=== PATIENT | male | born 1945 | race Caucasian/White ===

== ENCOUNTER 2019-08-05 14:46 | Inpatient (IN) | payer MEDICARE ==
[2019-08-05] MEDS ORDERED: Ondansetron 4 MG/2 ML SDV IVPUSH ONE (15:16)
[2019-08-05] MEDS ORDERED: Sodium Chloride 0.9% 10 ML Syringe FLUSH PRN ×2 (15:16→15:39)
[2019-08-05] MEDS: Sodium Chloride 0.9% 1,000 ML IV SCH (15:32)
--- NOTE | 2019-08-05 15:34 | EDM.PDOC ---
ED HPI GENERAL MEDICAL PROBLEM - General Chief Complaint: Abdominal Pain Stated Complaint: ABDOMINAL PAIN Time Seen by Provider: 08/05/19 14:55 Source of Information: Reports: Patient History Limitations: Reports: No Limitations - History of Present Illness INITIAL COMMENTS - FREE TEXT/NARRATIVE: Patient is a 74-year-old male who presents with complaints of generalized abdominal pain, distention, and bloating. He states that on Saturday he ate in [place]. After that he had a large loose bowel movement which he attributed to possibly eating something bad. Since that time, he has not been passing gas and has been getting increasingly distended. He did not pass gas or have a bowel movement at all yesterday. This morning he states he did have a small, hard bowel movement, however he did not pass any flatus with this either. He denies any history of previous abdominal surgeries. He still has his gallbladder and appendix. He denies any nausea, vomiting, fever, or chills. Pt has hx of afib and valve replacement and is on coumadin and amiodorone. He has had cardioversion and ablation in the past, but states these were unsuccessful. He denies any chest pain or SOB. Abdomen Pain Score (Numeric/FACES): 8 - Related Data Allergies Allergy/AdvReac Type Severity Reaction Status Date / Time No Known Allergies Allergy Verified 08/05/19 20:48 Home Meds: Home Meds Amiodarone [Cordarone] 200 mg PO DAILY 08/05/19 [History] Diclofenac Sodium 50 mg PO DAILY 08/05/19 [History] Doxazosin [Cardura] 1 mg PO BEDTIME 08/05/19 [History] Gabapentin [Neurontin] 100 mg PO BID 08/05/19 [History] Magnesium Amino Acid Chelate [Magnesium] 100 mg PO DAILY 08/05/19 [History] Pravastatin [Pravachol] 20 mg PO BEDTIME 08/05/19 [History] Warfarin Sodium [Coumadin] 6 mg PO TUFR 08/05/19 [History] Warfarin [Coumadin] 3 mg PO SUMOWETHSA 08/05/19 [History] Past Medical History HEENT History: Reports: Impaired Vision Cardiovascular History: Reports: High Cholesterol Genitourinary History: Reports: Other (See Below) Other Genitourinary History: frequeny at night Neurological History: Reports: Concussion, CVA 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 - Infectious Disease History Infectious Disease History: Reports: Scarlet Fever - Past Surgical History HEENT Surgical History: Reports: Tonsillectomy Cardiovascular Surgical History: Reports: Valve Replacement Other Cardiovascular Surgeries/Procedures: mechanical 1999 Social & Family History - Tobacco Use Smoking Status *Q: Current Every Day Smoker Years of Tobacco use: 25 Packs/Tins Daily: 0.1 - Caffeine Use Caffeine Use: Reports: Coffee, Tea - Alcohol Use Days Per Week of Alcohol Use: 5 Number of Drinks Per Day: 4 Total Drinks Per Week: 20 - Recreational Drug Use Recreational Drug Use: No ED ROS GENERAL - Review of Systems Review Of Systems: See Below Constitutional: Reports: No Symptoms. Denies: Fever, Chills HEENT: Reports: No Symptoms Respiratory: Reports: No Symptoms Cardiovascular: Reports: No Symptoms. Denies: Chest Pain, Palpitations Endocrine: Reports: No Symptoms GI/Abdominal: Reports: Abdominal Pain, Distension. Denies: Flatus, Nausea, Vomiting : Reports: No Symptoms Musculoskeletal: Reports: No Symptoms Skin: Reports: No Symptoms Neurological: Reports: No Symptoms Psychiatric: Reports: No Symptoms Hematologic/Lymphatic: Reports: No Symptoms Immunologic: Reports: No Symptoms ED EXAM, GI/ABD - Physical Exam Exam: See Below Exam Limited By: No Limitations General Appearance: Alert, WD/WN, No Apparent Distress Respiratory/Chest: No Respiratory Distress, Lungs Clear, Normal Breath Sounds, No Accessory Muscle Use, Chest Non-Tender Cardiovascular: Normal Peripheral Pulses, Regular Rate, Rhythm, No Edema, No Gallop, No JVD, No Murmur, No Rub GI/Abdominal Exam: No Organomegaly, No Distention, Distended (Firm), Guarding, Tender (Generalized throughout, but worse in the bilateral lower quadrants.), Abnormal Bowel Sounds (Hypoactive throughout) Neurological: Alert, Oriented, CN II-XII Intact, Normal Cognition, Normal Gait, Normal Reflexes, No Motor/Sensory Deficits Psychiatric: Normal Affect, Normal Mood Skin Exam: Warm, Dry, Intact, Normal Color, No Rash EKG INTERPRETATION EKG Date: 08/05/19 Time: 17:22 Rhythm: NSR Rate (Beats/Min): 80 Trilla: Normal P-Wave: Present QRS: LBBB (Incomplete) ST-T: Other (ST depression V3 through V6, I, and aVL) QT: Prolonged (Mildly) Comparison: NA - No Prior EKG EKG Interpretation Comments: EKG interpreted by Dr. Latanya MD Course - Vital Signs Last Recorded V/S: Last Vital Signs Temp 98.4 F 08/06/19 12:24 Pulse 69 08/06/19 12:24 Resp 18 08/06/19 12:24 BP 133/60 08/06/19 12:24 Pulse Ox 94 L 08/06/19 12:24 - Orders/Labs/Meds Orders: Active Orders 24 hr Category Date Time Status Patient Status [ADT] Routine ADT 08/05/19 17:56 Active Activity as Tolerated [RC] BID Care 08/05/19 17:56 Active Antiembolic Devices [RC] BID Care 08/05/19 17:57 Active Oxygen Therapy [RC] PRN Care 08/05/19 17:56 Active RT Incentive Spirometry [RC] Q1HWA Care 08/05/19 17:56 Active Vital Signs [RC] Q4HR Care 08/05/19 17:56 Active Acetaminophen [Tylenol] Med 08/05/19 18:00 Active 975 mg PO Q8H Amiodarone [Cordarone] Med 08/06/19 09:00 Active 200 mg PO DAILY Doxazosin [Cardura] Med 08/05/19 21:00 Active 1 mg PO BEDTIME Gabapentin [Neurontin] Med 08/05/19 21:00 Active 100 mg PO BID Lactated Ringers [Ringers, Lactated] 1,000 ml Med 08/05/19 18:00 Active IV ASDIRECTED Morphine Med 08/05/19 17:55 Active 1 mg IVPUSH Q3H PRN Simvastatin [Zocor] Med 08/05/19 21:00 Active 10 mg PO BEDTIME Sodium Chloride 0.9% [Normal Saline] 1,000 ml Med 08/05/19 15:30 Active IV ASDIRECTED Sodium Chloride 0.9% [Saline Flush] Med 08/05/19 15:16 Active 10 ml FLUSH ASDIRECTED PRN Peripheral IV Insertion Adult [OM.PC] Stat Oth 08/05/19 15:16 Ordered Sequential Compression Device [OM.PC] Routine Oth 08/05/19 17:56 Ordered Resuscitation Status Routine Resus Stat 08/05/19 17:55 Ordered Medication Orders Acetaminophen (Tylenol) 975 mg PO Q8H HELEN Last Admin: 08/06/19 11:33 Dose: 975 mg Admin: 08/06/19 02:09 Dose: 975 mg Admin: 08/05/19 22:59 Dose: Amiodarone HCl (Cordarone) 200 mg PO DAILY [facility] Last Admin: 08/06/19 08:26 Dose: 200 mg Doxazosin Mesylate (Cardura) 1 mg PO BEDTIME [facility] Last Admin: 08/05/19 23:11 Dose: Gabapentin (Neurontin) 100 mg PO BID [facility] Last Admin: 08/06/19 08:26 Dose: 100 mg Admin: 08/05/19 23:11 Dose: Sodium Chloride (Normal Saline) 1,000 mls @ 100 mls/hr IV ASDIRECTED [facility] Last Admin: 08/06/19 02:22 Dose: 150 mls/hr Infusion: 08/05/19 22:13 Dose: 100 mls/hr Admin: 08/05/19 15:32 Dose: 150 mls/hr Lactated Ringer's (Ringers, Lactated) 1,000 mls @ 100 mls/hr IV ASDIRECTED [facility] Last Admin: 08/06/19 05:23 Dose: 100 mls/hr Piperacillin Sod/Tazobactam (Sod 4.5 gm/ Sodium Chloride) 100 mls @ 25 mls/hr IV Q8H [facility] Last Admin: 08/06/19 08:27 Dose: 25 mls/hr Infusion: 08/06/19 05:01 Dose: 25 mls/hr Admin: 08/06/19 01:01 Dose: 25 mls/hr Lidocaine HCl (Xylocaine 2% Jelly) 5 ml MUCMEM Q4H [facility] Last Admin: 08/06/19 13:38 Dose: Not Given Admin: 08/06/19 08:26 Dose: 1 applic Admin: 08/06/19 04:16 Dose: 1 applic Admin: 08/06/19 01:00 Dose: 1 applic Morphine Sulfate (Morphine) 1 mg IVPUSH Q3H PRN PRN Reason: Pain (severe 7-10) Last Admin: 08/06/19 07:43 Dose: 1 mg Admin: 08/06/19 04:14 Dose: 1 mg Admin: 08/06/19 01:11 Dose: 1 mg Simvastatin (Zocor) 10 mg PO BEDTIME [facility] Last Admin: 08/05/19 23:11 Dose: Sodium Chloride (Saline Flush) 10 ml FLUSH ASDIRECTED PRN PRN Reason: Keep Vein Open Last Admin: 08/05/19 15:16 Dose: 10 ml Labs: Laboratory Tests 08/05/19 08/05/19 08/05/19 Range/Units 15:32 15:32 15:32 WBC 9.01 (4.23-9.07) K/mm3 RBC 4.20 L (4.63-6.08) M/mm3 Hgb 13.6 L (13.7-17.5) gm/dl Hct 40.9 (40.1-51.0) % MCV 97.4 H (79.0-92.2) fl MCH 32.4 H (25.7-32.2) pg MCHC 33.3 (32.2-35.5) g/dl RDW Std Deviation 47.4 H (35.1-43.9) fL Plt Count 171 (163-337) K/mm3 MPV 9.4 (9.4-12.3) fl Neut % (Auto) 89.5 H (34.0-67.9) % Lymph % (Auto) 4.1 L (21.8-53.1) % Kay % (Auto) 5.5 (5.3-12.2) % Eos % (Auto) 0.6 L (0.8-7.0) Baso % (Auto) 0.1 (0.1-1.2) % Neut # (Auto) 8.06 H (1.78-5.38) K/mm3 Lymph # (Auto) 0.37 L (1.32-3.57) K/mm3 Kay # (Auto) 0.50 (0.30-0.82) K/mm3 Eos # (Auto) 0.05 (0.04-0.54) K/mm3 Baso # (Auto) 0.01 (0.01-0.08) K/mm3 Manual Slide Review Abnormal smear PT (9.7-12.0) SECONDS INR APTT (22-31) SECONDS Sodium 139 (136-145) mEq/L Potassium 4.4 (3.5-5.1) mEq/L Chloride 102 (98-107) mEq/L Carbon Dioxide 27 (21-32) mEq/L Anion Gap 14.4 (5-15) BUN 23 H (7-18) mg/dL Creatinine 1.3 (0.7-1.3) mg/dL Est Cr Clr Drug Dosing 48.96 mL/min Estimated GFR (MDRD) 54 (>60) mL/min BUN/Creatinine Ratio 17.7 (14-18) Glucose 115 (83-115) mg/dL Lactic Acid (0.4-2.0) mmol/L Calcium 8.7 (8.5-10.1) mg/dL Total Bilirubin 1.0 (0.2-1.0) mg/dL AST 15 (15-37) U/L ALT 27 (16-63) U/L Alkaline Phosphatase 71 (46-116) U/L C-Reactive Protein 15.8 H* (<1.0) mg/dL Total Protein 7.4 (6.4-8.2) g/dl Albumin 3.7 (3.4-5.0) g/dl Globulin 3.7 gm/dL Albumin/Globulin Ratio 1.0 (1-2) Lipase 57 L (73-393) U/L Urine Color (Yellow) Urine Appearance (Clear) Urine pH (5.0-8.0) Ur Specific [place] (1.005-1.030) Urine Protein (Negative) Urine Glucose (UA) (Negative) Urine Ketones (Negative) Urine Occult Blood (Negative) Urine Nitrite (Negative) Urine Bilirubin (Negative) Urine Urobilinogen (0.2-1.0) Ur Leukocyte Esterase (Negative) Urine RBC (0-5) /hpf Urine WBC (0-5) /hpf Ur Squamous Epith Cells (0-5) /hpf Urine Bacteria (FEW) /hpf Urine Mucus (FEW) /hpf Blood Type Gel Antibody Screen 08/05/19 08/05/19 08/05/19 Range/Units 15:32 15:32 17:11 WBC (4.23-9.07) K/mm3 RBC (4.63-6.08) M/mm3 Hgb (13.7-17.5) gm/dl Hct (40.1-51.0) % MCV (79.0-92.2) fl MCH (25.7-32.2) pg MCHC (32.2-35.5) g/dl RDW Std Deviation (35.1-43.9) fL Plt Count (163-337) K/mm3 MPV (9.4-12.3) fl Neut % (Auto) (34.0-67.9) % Lymph % (Auto) (21.8-53.1) % Kay % (Auto) (5.3-12.2) % Eos % (Auto) (0.8-7.0) Baso % (Auto) (0.1-1.2) % Neut # (Auto) (1.78-5.38) K/mm3 Lymph # (Auto) (1.32-3.57) K/mm3 Kay # (Auto) (0.30-0.82) K/mm3 Eos # (Auto) (0.04-0.54) K/mm3 Baso # (Auto) (0.01-0.08) K/mm3 Manual Slide Review PT 31.0 H (9.7-12.0) SECONDS INR 3.03 APTT 55 H (22-31) SECONDS Sodium (136-145) mEq/L Potassium (3.5-5.1) mEq/L Chloride (98-107) mEq/L Carbon Dioxide (21-32) mEq/L Anion Gap (5-15) BUN (7-18) mg/dL Creatinine (0.7-1.3) mg/dL Est Cr Clr Drug Dosing mL/min Estimated GFR (MDRD) (>60) mL/min BUN/Creatinine Ratio (14-18) Glucose (83-115) mg/dL Lactic Acid (0.4-2.0) mmol/L Calcium (8.5-10.1) mg/dL Total Bilirubin (0.2-1.0) mg/dL AST (15-37) U/L ALT (16-63) U/L Alkaline Phosphatase (46-116) U/L C-Reactive Protein (<1.0) mg/dL Total Protein (6.4-8.2) g/dl Albumin (3.4-5.0) g/dl Globulin gm/dL Albumin/Globulin Ratio (1-2) Lipase (73-393) U/L Urine Color Yellow (Yellow) Urine Appearance Clear (Clear) Urine pH 5.5 (5.0-8.0) Ur Specific [place] 1.020 (1.005-1.030) Urine Protein 1+ H (Negative) Urine Glucose (UA) Negative (Negative) Urine Ketones Negative (Negative) Urine Occult Blood Negative (Negative) Urine Nitrite Negative (Negative) Urine Bilirubin Negative (Negative) Urine Urobilinogen 0.2 (0.2-1.0) Ur Leukocyte Esterase Negative (Negative) Urine RBC 0-5 (0-5) /hpf Urine WBC 0-5 (0-5) /hpf Ur Squamous Epith Cells 0-5 (0-5) /hpf Urine Bacteria Few (FEW) /hpf Urine Mucus Moderate H (FEW) /hpf Blood Type O POSITIVE Gel Antibody Screen Negative 08/05/19 Range/Units 17:50 WBC (4.23-9.07) K/mm3 RBC (4.63-6.08) M/mm3 Hgb (13.7-17.5) gm/dl Hct (40.1-51.0) % MCV (79.0-92.2) fl MCH (25.7-32.2) pg MCHC (32.2-35.5) g/dl RDW Std Deviation (35.1-43.9) fL Plt Count (163-337) K/mm3 MPV (9.4-12.3) fl Neut % (Auto) (34.0-67.9) % Lymph % (Auto) (21.8-53.1) % Kay % (Auto) (5.3-12.2) % Eos % (Auto) (0.8-7.0) Baso % (Auto) (0.1-1.2) % Neut # (Auto) (1.78-5.38) K/mm3 Lymph # (Auto) (1.32-3.57) K/mm3 Kay # (Auto) (0.30-0.82) K/mm3 Eos # (Auto) (0.04-0.54) K/mm3 Baso # (Auto) (0.01-0.08) K/mm3 Manual Slide Review PT (9.7-12.0) SECONDS INR APTT (22-31) SECONDS Sodium (136-145) mEq/L Potassium (3.5-5.1) mEq/L Chloride (98-107) mEq/L Carbon Dioxide (21-32) mEq/L Anion Gap (5-15) BUN (7-18) mg/dL Creatinine (0.7-1.3) mg/dL Est Cr Clr Drug Dosing mL/min Estimated GFR (MDRD) (>60) mL/min BUN/Creatinine Ratio (14-18) Glucose (83-115) mg/dL Lactic Acid 0.7 (0.4-2.0) mmol/L Calcium (8.5-10.1) mg/dL Total Bilirubin (0.2-1.0) mg/dL AST (15-37) U/L ALT (16-63) U/L Alkaline Phosphatase (46-116) U/L C-Reactive Protein (<1.0) mg/dL Total Protein (6.4-8.2) g/dl Albumin (3.4-5.0) g/dl Globulin gm/dL Albumin/Globulin Ratio (1-2) Lipase (73-393) U/L Urine Color (Yellow) Urine Appearance (Clear) Urine pH (5.0-8.0) Ur Specific [place] (1.005-1.030) Urine Protein (Negative) Urine Glucose (UA) (Negative) Urine Ketones (Negative) Urine Occult Blood (Negative) Urine Nitrite (Negative) Urine Bilirubin (Negative) Urine Urobilinogen (0.2-1.0) Ur Leukocyte Esterase (Negative) Urine RBC (0-5) /hpf Urine WBC (0-5) /hpf Ur Squamous Epith Cells (0-5) /hpf Urine Bacteria (FEW) /hpf Urine Mucus (FEW) /hpf Blood Type Gel Antibody Screen Meds: Medications Generic Name Dose Route Start Last Admin Trade Name Keshawn PRN Reason Stop Dose Admin Acetaminophen 975 mg 08/05/19 18:00 08/06/19 11:33 Tylenol PO 975 mg Q8H HELEN Administration Amiodarone HCl 200 mg 08/06/19 09:00 08/06/19 08:26 Cordarone PO 200 mg DAILY HELEN Administration Doxazosin Mesylate 1 mg 08/05/19 21:00 08/05/19 23:11 Cardura PO Not Given BEDTIME HELEN Gabapentin 100 mg 08/05/19 21:00 08/06/19 08:26 Neurontin PO 100 mg BID HELEN Administration Sodium Chloride 1,000 mls @ 100 mls/hr 08/05/19 15:30 08/06/19 02:22 Normal Saline IV 150 mls/hr ASDIRECTED HELEN Administration Lactated Ringer's 1,000 mls @ 100 mls/hr 08/05/19 18:00 08/06/19 05:23 Ringers, Lactated IV 100 mls/hr ASDIRECTED HELEN Administration Piperacillin Sod/Tazobactam 100 mls @ 25 mls/hr 08/06/19 01:00 08/06/19 08:27 Sod 4.5 gm/ Sodium Chloride IV 25 mls/hr Q8H HELEN Administration Lidocaine HCl 5 ml 08/06/19 00:30 08/06/19 13:38 Xylocaine 2% Jelly MUCMEM Not Given Q4H HELEN Morphine Sulfate 1 mg 08/05/19 17:55 08/06/19 07:43 Morphine IVPUSH 1 mg Q3H PRN Administration Pain (severe 7-10) Simvastatin 10 mg 08/05/19 21:00 08/05/19 23:11 Zocor PO Not Given BEDTIME HELEN Sodium Chloride 10 ml 08/05/19 15:16 08/05/19 15:16 Saline Flush FLUSH 10 ml ASDIRECTED PRN Administration Keep Vein Open Discontinued Medications Generic Name Dose Route Start Last Admin Trade Name Freq PRN Reason Stop Dose Admin Bupivacaine HCl/Epinephrine Bitart Confirm 08/05/19 21:01 08/05/19 22:38 Marcaine 0.5%/Epinephrine 1:200,000 Administered 08/05/19 21:02 17 ml Dose Administration 50 ml .ROUTE .STK-MED ONE Diatrizoate Meglum/Diatrizoate Sod 120 ml 08/05/19 15:39 08/05/19 16:53 Gastrografin 37% PO 08/05/19 15:40 120 ml ONETIME ONE Administration Ephedrine Sulfate Confirm 08/05/19 22:29 Ephedrine 25 Mg/5 Ml Syringe Administered 08/05/19 22:30 Dose 25 mg IV .STK-MED ONE Fentanyl Confirm 08/05/19 21:56 Sublimaze Administered 08/05/19 21:57 Dose 250 mcg .ROUTE .STK-MED ONE Fentanyl 50 mcg 08/06/19 00:16 Sublimaze IVPUSH Q5M PRN Pain Glycopyrrolate Confirm 08/05/19 23:54 Administered 08/05/19 23:55 Dose 1 mg .ROUTE .STK-MED ONE Piperacillin Sod/Tazobactam 100 mls @ 200 mls/hr 08/05/19 17:18 08/05/19 17: 16 Sod 4.5 gm/ Sodium Chloride IV 08/05/19 17:47 200 mls/hr ONETIME ONE Administration Piperacillin Sod/Tazobactam 100 mls @ 200 mls/hr 08/06/19 00:01 Sod 3.375 gm/ Sodium Chloride IV 08/06/19 00:30 Q8HR ONE Lidocaine HCl Confirm 08/05/19 21:56 Xylocaine-Mpf 1% Administered 08/05/19 21:57 Dose 4 mls @ as directed .ROUTE .STK-MED ONE Cefoxitin Sodium Confirm 08/05/19 22:34 Mefoxin In Dextrose,Iso-Osm 2 Gm/50 Ml Administered 08/05/19 22:35 Dose 50 mls @ as directed .ROUTE .STK-MED ONE Lactated Ringer's Confirm 08/05/19 23:02 Ringers, Lactated Administered 08/05/19 23:03 Dose 1,000 mls @ as directed .ROUTE .STK-MED ONE Iopamidol 50 ml 08/05/19 15:39 08/05/19 16:53 Isovue-300 (61%) IVPUSH 08/05/19 15:40 50 ml ONETIME ONE Administration Iopamidol 100 ml 08/05/19 15:39 08/05/19 16:53 Isovue-300 (61%) IVPUSH 08/05/19 15:40 100 ml ONETIME ONE Administration Midazolam HCl Confirm 08/05/19 21:56 Versed 1 Mg/Ml Administered 08/05/19 21:57 Dose 2 mg .ROUTE .STK-MED ONE Neostigmine Methylsulfate Confirm 08/05/19 23:54 Neostigmine Methylsulfate Administered 08/05/19 23:55 Dose 5 mg .ROUTE .STK-MED ONE Ondansetron HCl 4 mg 08/05/19 15:16 08/05/19 15:18 Zofran IVPUSH 08/05/19 15:17 4 mg ONETIME ONE Administration Ondansetron HCl Confirm 08/05/19 21:56 Zofran Administered 08/05/19 21:57 Dose 4 mg .ROUTE .STK-MED ONE Propofol Confirm 08/05/19 21:56 Diprivan 20 Ml Administered 08/05/19 21:57 Dose 200 mg .ROUTE .STK-MED ONE Rocuronium [place] Confirm 08/05/19 21:56 Zemuron Administered 08/05/19 21:57 Dose 50 mg .ROUTE .STK-MED ONE Sodium Chloride 10 ml 08/05/19 15:39 08/05/19 16:54 Saline Flush FLUSH 10 ml ONETIME PRN Administration IV FLUSH - Re-Assessments/Exams Free Text/Narrative Re-Assessment/Exam: Hematology was significant for a CRP elevated at 15.3. WBCs are normal. Hemoglobin slightly low at 13.6. INR slightly supratherapeutic at 3.03. Pt continues to deny the need for pain medications. CT of the abdomen pelvis results are as follows. 1. Findings may be consistent with early abscess formation within the right lower quadrant. Question small perforation. 2. There is thickening of the marte in the terminal ileum as well as the a sending colon. Findings are suggestive of colitis/diverticulitis. 3. Moderate diverticulosis is present in the distal colon. 4. Mild thickening of the marte of the small bowel consistent with enteritis. 5. Bilateral fat filled inguinal hernias. Consulted with the on-call surgeon, Dr. Roblero. Requested we start him on Zosyn. He will admit the patient. Departure - Departure Time of Disposition: 17:00 Disposition: Admitted As Inpatient 67 Clinical Impression: Diverticulitis of intestine with perforation Qualifiers: Diverticulitis site: unspecified part of intestinal tract Diverticulitis bleeding: unspecified bleeding status Qualified Code(s): K57.80 - Diverticulitis of intestine, part unspecified, with perforation and abscess without bleeding - Discharge Information Sepsis Event Note (ED) - Evaluation Sepsis Screening Result: No Definite Risk - My Orders Last 24 Hours: My Active Orders 08/05/19 15:16 Sodium Chloride 0.9% [Saline Flush] 10 ml FLUSH ASDIRECTED PRN Peripheral IV Insertion Adult [OM.PC] Stat 08/05/19 15:30 Sodium Chloride 0.9% [Normal Saline] 1,000 ml IV ASDIRECTED - Assessment/Plan Last 24 Hours: My Active Orders 08/05/19 15:16 Sodium Chloride 0.9% [Saline Flush] 10 ml FLUSH ASDIRECTED PRN Peripheral IV Insertion Adult [OM.PC] Stat 08/05/19 15:30 Sodium Chloride 0.9% [Normal Saline] 1,000 ml IV ASDIRECTED
[2019-08-05] MEDS ORDERED: Iopamidol 612 MG/ML 100 ML Bottle IVPUSH ONE (15:39)
[2019-08-05] MEDS ORDERED: Diatrizoate Meglumine/Diatrizoate Sodium 37% 120 ML Bottle PO ONE (15:39)
[2019-08-05] MEDS ORDERED: Iopamidol 612 MG/ML 50 ML SDV IVPUSH ONE (15:39)
[2019-08-05] MEDS ORDERED: Piperacillin/Tazobactam 4.5 GM in Sodium Chloride 0.9% 100 ML IV ONE (17:18)
[2019-08-05] MEDS ORDERED: Lactated Ringers 1,000 ML IV SCH (18:00)
--- NOTE | 2019-08-05 18:10 | CT ---
CT abdomen and pelvis Technique: Multiple axial sections were obtained from above the dome of the diaphragm inferiorly through the pubic symphysis. Intravenous and oral contrast was utilized. Delayed images were also obtained through the abdomen and pelvis. Findings: Inflammatory change is seen off the tip of the cecum. There are small air bubbles tracking along what would be the expected location of the appendix. Appendix is not visualized but air bubbles most likely represent rupturing of the appendix. Inflammatory change is most likely from appendicitis. Diverticuli are seen within the right colon and within the adjacent sigmoid colon but epicenter of the inflammatory change does not appear to involve these diverticuli. Other findings: Visualized lung bases show nothing acute. Liver contains no focal parenchymal abnormality. Spleen appears within normal limits. Adrenal glands show no nodule. Pancreas is within normal limits. Gallbladder contains no calcified gallstones. Aorta shows diffuse atherosclerotic calcification without aneurysm. Kidneys show symmetric contrast enhancement with no hydronephrosis or mass. There is some areas of bowel wall thickening being seen. Uncertain if this is real or due to lack of distention. No pelvic mass or adenopathy is seen. Small fat-containing inguinal hernias are noted bilaterally. Delayed images shows contrast within both distal ureters and bladder. Bone window settings shows scattered degenerative change within the spine. Unilateral spondylolytic defect noted at L5-S1. Impression: 1. Inflammatory change most suspicious for ruptured appendix compatible with appendicitis. 2. Diverticuli seen within the right colon as well as within sigmoid colon. 3. Other findings believed to be incidental as noted above. Findings of appendicitis were discussed with Dr. Pelaez by phone at around the time 6:02 PM Diagnostic code #5 This report was dictated in MDT I mostly agree with preliminary report from ad (please see above for further details), finalized on 08/05/19, 6:28 PM Central Daylight Time
--- NOTE | 2019-08-05 18:10 | CR ---
Chest: Portable view of the chest was obtained. Comparison: No prior chest imaging. Heart size and mediastinum are normal. Previous sternotomy is noted. Lungs are clear with no acute parenchymal change. Bony structures are grossly intact. Impression: 1. Nothing acute seen on portable chest x-ray. Diagnostic code #2 This report was dictated in MDT
--- NOTE | 2019-08-05 18:12 | PCM.HP.2 ---
H&P History of Present Illness - General Date of Service: 08/05/19 Admit Problem/Dx: Admission Diagnosis/Problem Admission Diagnosis/Problem Diverticulitis of colon with perforation Source of Information: Patient History Limitations: Reports: No Limitations - History of Present Illness Duration of Symptoms: Reports: Day(s): Location: Reports: Abdomen Other HPI/Comments: Mr. Alcaraz is a 74 yo man who works at the [employer] who presents to the emergency room for abdominal pain. He was doing fine until two days ago, when, at dinner time, he had some diarrhea. Subsequently, he had persistent abdominal bloating and discomfort. However, the following evening, he developed pain in the lower abdomen. He denies nausea, vomiting, or fever but has diminished appetite. He has never had pain like this before. IN the ER, his vitals are normal and he is in no distress. Work up is significant for CT scan showing inflammatory changes near the ileocecal junction, with question of appendicitis vs perforated diverticulitis. The patient has no history of abdominal surgery, and no history of inflammatory bowel disease. His last colonoscopy was over 10 years ago. He denies any history of diverticular disease. The patient has a history of mechanical aortic valve replacement 20 years ago and he takes coumadin. He has had atrial fibrillation, and last year underwent transcatheter ablation, which was ineffective. However, after cardioversion, the patient reports he has been in sinus rhythm. Abdomen Pain Score (Numeric/FACES): 8 - Related Data Allergies/Adverse Reactions: Allergies Allergy/AdvReac Type Severity Reaction Status Date / Time No Known Allergies Allergy Verified 08/05/19 14:55 Home Medications: Home Meds Amiodarone [Cordarone] 200 mg PO DAILY 08/05/19 [History] Diclofenac Sodium 50 mg PO DAILY 08/05/19 [History] Doxazosin [Cardura] 1 mg PO BEDTIME 08/05/19 [History] Gabapentin [Neurontin] 100 mg PO BID 08/05/19 [History] Pravastatin [Pravachol] 20 mg PO BEDTIME 08/05/19 [History] Warfarin Sodium [Coumadin] 6 mg PO TUFR 08/05/19 [History] Warfarin [Coumadin] 3 mg PO SUMOWETHSA 08/05/19 [History] Past Medical History HEENT History: Reports: Impaired Vision Cardiovascular History: Reports: High Cholesterol Genitourinary History: Reports: Other (See Below) Other Genitourinary History: frequeny at night Neurological History: Reports: Concussion, CVA 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 - Infectious Disease History Infectious Disease History: Reports: Scarlet Fever - Past Surgical History HEENT Surgical History: Reports: Tonsillectomy Cardiovascular Surgical History: Reports: Valve Replacement Other Cardiovascular Surgeries/Procedures: mechanical 2000 Social & Family History - Tobacco Use Smoking Status *Q: Current Every Day Smoker Years of Tobacco use: 25 Packs/Tins Daily: 0.1 - Caffeine Use Caffeine Use: Reports: Coffee, Tea - Alcohol Use Days Per Week of Alcohol Use: 5 Number of Drinks Per Day: 4 Total Drinks Per Week: 20 - Recreational Drug Use Recreational Drug Use: No H&P Review of Systems - Review of Systems: Review Of Systems: See Below General: Reports: Malaise, Decreased Appetite HEENT: Reports: No Symptoms Pulmonary: Reports: No Symptoms Cardiovascular: Reports: No Symptoms Gastrointestinal: Reports: Abdominal Pain, Anorexia, Diarrhea, Decreased Appetite, Distension Genitourinary: Reports: No Symptoms Musculoskeletal: Reports: No Symptoms Skin: Reports: No Symptoms Psychiatric: Reports: No Symptoms Neurological: Reports: No Symptoms Exam - Exam Exam: See Below - Vital Signs Vital Signs: Last Vital Signs Temp 37.1 C 08/05/19 14:59 Pulse 73 08/05/19 14:59 Resp 20 08/05/19 14:59 BP 123/73 08/05/19 14:59 Pulse Ox 99 08/05/19 14:59 Weight: 108.862 kg - Exam General: Alert, Oriented, Cooperative HEENT: Conjunctiva Clear Neck: Trachea Midline Lungs: Normal Respiratory Effort Cardiovascular: Regular Rate, Regular Rhythm, Other (sternotomy scar) GI/Abdominal Exam: Distended, Tender, Other (no palpable mass or hernia. Diffusely tender with light palpation/percussion, more so in the right lower quadrant. No rigidity or rebound. ) Extremities: Normal Inspection Skin: Warm, Dry - Patient Data Lab Results Last 24 hrs: Laboratory Results - last 24 hr 08/05/19 08/05/19 08/05/19 Range/Units 15:32 15:32 15:32 WBC 9.01 (4.23-9.07) K/mm3 RBC 4.20 L (4.63-6.08) M/mm3 Hgb 13.6 L (13.7-17.5) gm/dl Hct 40.9 (40.1-51.0) % MCV 97.4 H (79.0-92.2) fl MCH 32.4 H (25.7-32.2) pg MCHC 33.3 (32.2-35.5) g/dl RDW Std Deviation 47.4 H (35.1-43.9) fL Plt Count 171 (163-337) K/mm3 MPV 9.4 (9.4-12.3) fl Neut % (Auto) 89.5 H (34.0-67.9) % Lymph % (Auto) 4.1 L (21.8-53.1) % [place] % (Auto) 5.5 (5.3-12.2) % Eos % (Auto) 0.6 L (0.8-7.0) Baso % (Auto) 0.1 (0.1-1.2) % Neut # (Auto) 8.06 H (1.78-5.38) K/mm3 Lymph # (Auto) 0.37 L (1.32-3.57) K/mm3 [place] # (Auto) 0.50 (0.30-0.82) K/mm3 Eos # (Auto) 0.05 (0.04-0.54) K/mm3 Baso # (Auto) 0.01 (0.01-0.08) K/mm3 Manual Slide Review Abnormal smear PT (9.7-12.0) SECONDS INR APTT (22-31) SECONDS Sodium 139 (136-145) mEq/L Potassium 4.4 (3.5-5.1) mEq/L Chloride 102 (98-107) mEq/L Carbon Dioxide 27 (21-32) mEq/L Anion Gap 14.4 (5-15) BUN 23 H (7-18) mg/dL Creatinine 1.3 (0.7-1.3) mg/dL Est Cr Clr Drug Dosing 48.96 mL/min Estimated GFR (MDRD) 54 (>60) mL/min BUN/Creatinine Ratio 17.7 (14-18) Glucose 115 (83-115) mg/dL Calcium 8.7 (8.5-10.1) mg/dL Total Bilirubin 1.0 (0.2-1.0) mg/dL AST 15 (15-37) U/L ALT 27 (16-63) U/L Alkaline Phosphatase 71 (46-116) U/L C-Reactive Protein 15.8 H* (<1.0) mg/dL Total Protein 7.4 (6.4-8.2) g/dl Albumin 3.7 (3.4-5.0) g/dl Globulin 3.7 gm/dL Albumin/Globulin Ratio 1.0 (1-2) Lipase 57 L (73-393) U/L 08/05/19 Range/Units 15:32 WBC (4.23-9.07) K/mm3 RBC (4.63-6.08) M/mm3 Hgb (13.7-17.5) gm/dl Hct (40.1-51.0) % MCV (79.0-92.2) fl MCH (25.7-32.2) pg MCHC (32.2-35.5) g/dl RDW Std Deviation (35.1-43.9) fL Plt Count (163-337) K/mm3 MPV (9.4-12.3) fl Neut % (Auto) (34.0-67.9) % Lymph % (Auto) (21.8-53.1) % [place] % (Auto) (5.3-12.2) % Eos % (Auto) (0.8-7.0) Baso % (Auto) (0.1-1.2) % Neut # (Auto) (1.78-5.38) K/mm3 Lymph # (Auto) (1.32-3.57) K/mm3 [place] # (Auto) (0.30-0.82) K/mm3 Eos # (Auto) (0.04-0.54) K/mm3 Baso # (Auto) (0.01-0.08) K/mm3 Manual Slide Review PT 31.0 H (9.7-12.0) SECONDS INR 3.03 APTT 55 H (22-31) SECONDS Sodium (136-145) mEq/L Potassium (3.5-5.1) mEq/L Chloride (98-107) mEq/L Carbon Dioxide (21-32) mEq/L Anion Gap (5-15) BUN (7-18) mg/dL Creatinine (0.7-1.3) mg/dL Est Cr Clr Drug Dosing mL/min Estimated GFR (MDRD) (>60) mL/min BUN/Creatinine Ratio (14-18) Glucose (83-115) mg/dL Calcium (8.5-10.1) mg/dL Total Bilirubin (0.2-1.0) mg/dL AST (15-37) U/L ALT (16-63) U/L Alkaline Phosphatase (46-116) U/L C-Reactive Protein (<1.0) mg/dL Total Protein (6.4-8.2) g/dl Albumin (3.4-5.0) g/dl Globulin gm/dL Albumin/Globulin Ratio (1-2) Lipase (73-393) U/L Result Diagrams: 08/05/19 15:32 08/05/19 15:32 Sepsis Event Note - Evaluation Sepsis Screening Result: No Definite Risk - Focused Exam Vital Signs: Vital Signs Temp Pulse Resp BP Pulse Ox 08/05/19 14:59 37.1 C 73 20 123/73 99 Date Exam was Performed: 08/05/19 Time Exam was Performed: 18:07 *Q Meaningful Use (ADM) - VTE Risk Assess *Q Each Risk Factor Represents 2 Points: Age 60 - 74 Years, Laparoscopic surgery greater than 45 minutes Total Score 2 Point Risk Factors: 4 Problem List Initiated/Reviewed/Updated: No Orders Last 24hrs: Active Orders 24 hr Category Date Time Status Patient Status [ADT] Routine ADT 08/05/19 17:56 Ordered Activity as Tolerated [RC] .Routine Care 08/05/19 17:56 Ordered Antiembolic Devices [RC] PER UNIT ROUTINE Care 08/05/19 17:57 Ordered EKG Documentation Completion [RC] STAT Care 08/05/19 17:21 Active Oxygen Therapy [RC] PRN Care 08/05/19 17:56 Ordered Peripheral IV Care [RC] . DIRECTED Care 08/05/19 15:16 Active RT Incentive Spirometry [RC] Q1HWA Care 08/05/19 17:56 Ordered Vital Signs [RC] Q4HR Care 08/05/19 17:56 Ordered Nothing Per Oral Diet [DIET] Diet 08/05/19 Breakfast Ordered Abdomen Pelvis w Cont [CT] Stat Exams 08/05/19 15:16 Taken Chest 1V Frontal [CR] Stat Exams 08/05/19 17:22 Taken BASIC METABOLIC PANEL,BMP [CHEM] AM Lab 08/06/19 05:11 Ordered CBC WITH AUTO DIFF [HEME] AM Lab 08/06/19 05:11 Ordered LACTIC ACID [CHEM] Stat Lab 08/05/19 17:50 Received UA W/MICROSCOPIC [URIN] Stat Lab 08/05/19 17:11 Received Acetaminophen [Tylenol] Med 08/05/19 18:00 Ordered 975 mg PO Q8H Amiodarone [Cordarone] Med 08/06/19 09:00 Ordered 200 mg PO DAILY Doxazosin Med 08/05/19 21:00 Ordered 1 mg PO BEDTIME Gabapentin [Neurontin] Med 08/05/19 21:00 Ordered 100 mg PO BID Lactated Ringers @ 100 MLS/HR(1000ml Bag) Med 08/05/19 18:00 Ordered Lactated Ringers [Ringers, Lactated] 1,000 ml IV ASDIRECTED Morphine Med 08/05/19 17:55 Ordered 1 mg IVPUSH Q3H PRN Piperacillin/Tazobactam [Piperacil-Tazobact] 3.375 gm Med 08/06/19 00:01 Ordered Sodium Chloride 0.9% [Normal Saline] 100 ml IV Q8HR Pravastatin Med 08/05/19 21:00 Ordered 20 mg PO BEDTIME Sodium Chloride 0.9% [Normal Saline] 1,000 ml Med 08/05/19 15:30 Active IV ASDIRECTED Sodium Chloride 0.9% [Saline Flush] Med 08/05/19 15:16 Active 10 ml FLUSH ASDIRECTED PRN Sodium Chloride 0.9% [Saline Flush] Med 08/05/19 15:39 Active 10 ml FLUSH ONETIME PRN Peripheral IV Insertion Adult [OM.PC] Stat Oth 08/05/19 15:16 Ordered Sequential Compression Device [OM.PC] Routine Oth 08/05/19 17:56 Ordered Resuscitation Status Routine Resus Stat 08/05/19 17:55 Ordered Medication Orders Acetaminophen (Tylenol) 975 mg PO Q8H HELEN Amiodarone HCl (Cordarone) 200 mg PO DAILY HELEN Gabapentin (Neurontin) 100 mg PO BID HELEN Sodium Chloride (Normal Saline) 1,000 mls @ 150 mls/hr IV ASDIRECTED HELEN Last Admin: 08/05/19 15:32 Dose: 150 mls/hr Lactated Ringer's (Ringers, Lactated) 1,000 mls @ 100 mls/hr IV ASDIRECTED HELEN Piperacillin Sod/Tazobactam (Sod 3.375 gm/ Sodium Chloride) 100 mls @ 200 mls/ hr IV Q8HR ONE Stop: 08/06/19 00:30 Morphine Sulfate (Morphine) 1 mg IVPUSH Q3H PRN PRN Reason: Pain (severe 7-10) Non-Formulary Medication (Doxazosin) 1 mg PO BEDTIME HELEN Non-Formulary Medication (Pravastatin) 20 mg PO BEDTIME HELEN Sodium Chloride (Saline Flush) 10 ml FLUSH ASDIRECTED PRN PRN Reason: Keep Vein Open Last Admin: 08/05/19 15:16 Dose: 10 ml Sodium Chloride (Saline Flush) 10 ml FLUSH ONETIME PRN PRN Reason: IV FLUSH Last Admin: 08/05/19 16:54 Dose: 10 ml Assessment/Plan Comment:: Contained perforation of hollow viscus with surrounding inflammatory change, differential includes appendicitis vs diverticulitis. Await final radiology report and plan to discuss management options with patient at that time. For now, given he is clinically stable, we will plan for admission, IV fluids and antibiotics. - Mortality Measure Prognosis:: Good
--- NOTE | 2019-08-05 20:47 | PCM.SN.2 ---
- Free Text/Narrative Note: After review, I think the patient most likely has perforated appendicitis and that the best plan is to go to the OR this evening for laparoscopic appendectomy. I reviewed the plan with the patient, discussing the possibility of finding perforated diverticulitis rather than appendicitis and the possibility of abdominal washout and drain placement. I reviewed the increased risk of bleeding due to his coumadin, and the increased risk of developing post- op abscess in the case of perforated appendicitis. ALl questions were answered and informed consent was obtained.
--- NOTE | 2019-08-05 21:34 | PCM.PREANE ---
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" ) Other: Reports: Easy Bleeding, Easy Bruising - Physical Assessment NPO Status Date: 08/04/19 NPO Status Time: 18:00 Vital Signs: Last Vital Signs Temp 37.2 C 08/05/19 20:00 Pulse 67 08/05/19 20:00 Resp 18 08/05/19 20:00 BP 92/35 L 08/05/19 20:00 Pulse Ox 93 L 08/05/19 20:00 Height: 1.73 m Weight: 109.316 kg ASA Class: 3E Mental Status: Alert & Oriented x3 Airway Class: Mallampati = 2 Dentition: Reports: Normal Dentition (loose tooth front lower bottom), [place](s) Thyro-Mental Finger Breadths: 2 Mouth Opening Finger Breadths: 2 ROM/Head Extension: Full Lungs: Normal Respiratory Effort Cardiovascular: Regular Rate, Regular Rhythm - Lab Values: Laboratory Last Values WBC 9.01 K/mm3 (4.23-9.07) 08/05/19 15:32 RBC 4.20 M/mm3 (4.63-6.08) L 08/05/19 15:32 Hgb 13.6 gm/dl (13.7-17.5) L 08/05/19 15:32 Hct 40.9 % (40.1-51.0) 08/05/19 15:32 MCV 97.4 fl (79.0-92.2) H 08/05/19 15:32 MCH 32.4 pg (25.7-32.2) H 08/05/19 15:32 MCHC 33.3 g/dl (32.2-35.5) 08/05/19 15:32 RDW Std Deviation 47.4 fL (35.1-43.9) H 08/05/19 15:32 Plt Count 171 K/mm3 (163-337) 08/05/19 15:32 MPV 9.4 fl (9.4-12.3) 08/05/19 15:32 Neut % (Auto) 89.5 % (34.0-67.9) H 08/05/19 15:32 Lymph % (Auto) 4.1 % (21.8-53.1) L 08/05/19 15:32 [place] % (Auto) 5.5 % (5.3-12.2) 08/05/19 15:32 Eos % (Auto) 0.6 (0.8-7.0) L 08/05/19 15:32 Baso % (Auto) 0.1 % (0.1-1.2) 08/05/19 15:32 Neut # (Auto) 8.06 K/mm3 (1.78-5.38) H 08/05/19 15:32 Lymph # (Auto) 0.37 K/mm3 (1.32-3.57) L 08/05/19 15:32 [place] # (Auto) 0.50 K/mm3 (0.30-0.82) 08/05/19 15:32 Eos # (Auto) 0.05 K/mm3 (0.04-0.54) 08/05/19 15:32 Baso # (Auto) 0.01 K/mm3 (0.01-0.08) 08/05/19 15:32 Manual Slide Review Abnormal smear 08/05/19 15:32 PT 31.0 SECONDS (9.7-12.0) H 08/05/19 15:32 INR 3.03 08/05/19 15:32 APTT 55 SECONDS (22-31) H 08/05/19 15:32 Sodium 139 mEq/L (136-145) 08/05/19 15:32 Potassium 4.4 mEq/L (3.5-5.1) 08/05/19 15:32 Chloride 102 mEq/L (98-107) 08/05/19 15:32 Carbon Dioxide 27 mEq/L (21-32) 08/05/19 15:32 Anion Gap 14.4 (5-15) 08/05/19 15:32 BUN 23 mg/dL (7-18) H 08/05/19 15:32 Creatinine 1.3 mg/dL (0.7-1.3) 08/05/19 15:32 Est Cr Clr Drug Dosing 48.96 mL/min 08/05/19 15:32 Estimated GFR (MDRD) 54 mL/min (>60) 08/05/19 15:32 BUN/Creatinine Ratio 17.7 (14-18) 08/05/19 15:32 Glucose 115 mg/dL (83-115) 08/05/19 15:32 Lactic Acid 0.7 mmol/L (0.4-2.0) 08/05/19 17:50 Calcium 8.7 mg/dL (8.5-10.1) 08/05/19 15:32 Total Bilirubin 1.0 mg/dL (0.2-1.0) 08/05/19 15:32 AST 15 U/L (15-37) 08/05/19 15:32 ALT 27 U/L (16-63) 08/05/19 15:32 Alkaline Phosphatase 71 U/L (46-116) 08/05/19 15:32 C-Reactive Protein 15.8 mg/dL (<1.0) H* 08/05/19 15:32 Total Protein 7.4 g/dl (6.4-8.2) 08/05/19 15:32 Albumin 3.7 g/dl (3.4-5.0) 08/05/19 15:32 Globulin 3.7 gm/dL 08/05/19 15:32 Albumin/Globulin Ratio 1.0 (1-2) 08/05/19 15:32 Lipase 57 U/L (73-393) L 08/05/19 15:32 Urine Color Yellow (Yellow) 08/05/19 17:11 Urine Appearance Clear (Clear) 08/05/19 17:11 Urine pH 5.5 (5.0-8.0) 08/05/19 17:11 Ur Specific [place] 1.020 (1.005-1.030) 08/05/19 17:11 Urine Protein 1+ (Negative) H 08/05/19 17:11 Urine Glucose (UA) Negative (Negative) 08/05/19 17:11 Urine Ketones Negative (Negative) 08/05/19 17:11 Urine Occult Blood Negative (Negative) 08/05/19 17:11 Urine Nitrite Negative (Negative) 08/05/19 17:11 Urine Bilirubin Negative (Negative) 08/05/19 17: Urine Urobilinogen 0.2 (0.2-1.0) 08/05/19 17:11 Ur Leukocyte Esterase Negative (Negative) 08/05/19 17:11 Urine RBC 0-5 /hpf (0-5) 08/05/19 17:11 Urine WBC 0-5 /hpf (0-5) 08/05/19 17:11 Ur Squamous Epith Cells 0-5 /hpf (0-5) 08/05/19 17:11 Urine Bacteria Few /hpf (FEW) 08/05/19 17:11 Urine Mucus Moderate /hpf (FEW) H 08/05/19 17:11 SARS-CoV-2 RNA (RT-PCR) Negative (NEGATIVE) 08/05/19 20:40 - Imaging/EKG Impressions: EKG NSR rate [address] depression - Allergies Allergies/Adverse Reactions: Allergies Allergy/AdvReac Type Severity Reaction Status Date / Time No Known Allergies Allergy Verified 08/05/19 20:48 - Blood Blood Available: Yes Product(s) Available: PRBC, FFP - Anesthesia Plan Pre-Op Medication Ordered: None - Acknowledgements Anesthesia Type Planned: General Anesthesia Pt an Appropriate Candidate for the Planned Anesthesia: Yes Alternatives and Risks of Anesthesia Discussed w Pt/Guardian: Yes Pt/Guardian Understands and Agrees with Anesthesia Plan: Yes PreAnesthesia Questionnaire HEENT History: Reports: Impaired Vision Other HEENT History: wear glasses Cardiovascular History: Reports: Arrhythmia, High Cholesterol Respiratory History: Reports: Sleep Apnea Other Respiratory History: Uses CPAP regularly recently Genitourinary History: Reports: Other (See Below) Other Genitourinary History: frequency and slow flow at night Neurological History: Reports: Concussion, CVA Other Neuro History: cva-1993 Psychiatric History: Reports: None Dermatologic History: Reports: Other (See Below) Other Dermatologic History: Rosacea & Eczema - Infectious Disease History Infectious Disease History: Reports: Scarlet Fever - Past Surgical History HEENT Surgical History: Reports: Tonsillectomy Cardiovascular Surgical History: Reports: Valve Replacement Other Cardiovascular Surgeries/Procedures: mechanical 1999. Inversion Mar 2019 and Ablation 2018. - SUBSTANCE USE Smoking Status *Q: Current Every Day Smoker Days Per Week of Alcohol Use: 5 Number of Drinks Per Day: 4 Total Drinks Per Week: 20 Recreational Drug Use History: No - HOME MEDS Home Medications: Home Meds Amiodarone [Cordarone] 200 mg PO DAILY 08/05/19 [History] Diclofenac Sodium 50 mg PO DAILY 08/05/19 [History] Doxazosin [Cardura] 1 mg PO BEDTIME 08/05/19 [History] Gabapentin [Neurontin] 100 mg PO BID 08/05/19 [History] Magnesium Amino Acid Chelate [Magnesium] 100 mg PO DAILY 08/05/19 [History] Pravastatin [Pravachol] 20 mg PO BEDTIME 08/05/19 [History] Warfarin Sodium [Coumadin] 6 mg PO TUFR 08/05/19 [History] Warfarin [Coumadin] 3 mg PO SUMOWETHSA 08/05/19 [History] - CURRENT (IN HOUSE) MEDS Current Meds: Current Medications Acetaminophen (Tylenol) 975 mg PO Q8H HELEN Amiodarone HCl (Cordarone) 200 mg PO DAILY HELEN Doxazosin Mesylate (Cardura) 1 mg PO BEDTIME HELEN Gabapentin (Neurontin) 100 mg PO BID HELEN Sodium Chloride (Normal Saline) 1,000 mls @ 100 mls/hr IV ASDIRECTED HELEN Last Admin: 08/05/19 15:32 Dose: 150 mls/hr Lactated Ringer's (Ringers, Lactated) 1,000 mls @ 100 mls/hr IV ASDIRECTED HELEN Piperacillin Sod/Tazobactam (Sod 4.5 gm/ Sodium Chloride) 100 mls @ 25 mls/hr IV Q8H HELEN Morphine Sulfate (Morphine) 1 mg IVPUSH Q3H PRN PRN Reason: Pain (severe 7-10) Simvastatin (Zocor) 10 mg PO BEDTIME HELEN Sodium Chloride (Saline Flush) 10 ml FLUSH ASDIRECTED PRN PRN Reason: Keep Vein Open Last Admin: 08/05/19 15:16 Dose: 10 ml Sodium Chloride (Saline Flush) 10 ml FLUSH ONETIME PRN PRN Reason: IV FLUSH Last Admin: 08/05/19 16:54 Dose: 10 ml Discontinued Medications Bupivacaine HCl/Epinephrine Bitart (Marcaine 0.5%/Epinephrine 1:200,000) Confirm Administered Dose 50 ml .ROUTE .STK-MED ONE Stop: 08/05/19 21:02 Diatrizoate Meglum/Diatrizoate Sod (Gastrografin 37%) 120 ml PO ONETIME ONE Stop: 08/05/19 15:40 Last Admin: 08/05/19 16:53 Dose: 120 ml Piperacillin Sod/Tazobactam (Sod 4.5 gm/ Sodium Chloride) 100 mls @ 200 mls/hr IV ONETIME ONE Stop: 08/05/19 17:47 Last Admin: 08/05/19 17:16 Dose: 200 mls/hr Piperacillin Sod/Tazobactam (Sod 3.375 gm/ Sodium Chloride) 100 mls @ 200 mls/ hr IV Q8HR ONE Stop: 08/06/19 00:30 Iopamidol (Isovue-300 (61%)) 50 ml IVPUSH ONETIME ONE Stop: 08/05/19 15:40 Last Admin: 08/05/19 16:53 Dose: 50 ml Iopamidol (Isovue-300 (61%)) 100 ml IVPUSH ONETIME ONE Stop: 08/05/19 15:40 Last Admin: 08/05/19 16:53 Dose: 100 ml Ondansetron HCl (Zofran) 4 mg IVPUSH ONETIME ONE Stop: 08/05/19 15:17 Last Admin: 08/05/19 15:18 Dose: 4 mg
[2019-08-05] MEDS: Bupivacaine 0.5%/EPINEPHrine 1:200,000 50 ML MDV ONE ×2 (21:43→22:38)
[2019-08-05] MEDS ORDERED: Lidocaine 1% 4 ML ONE (21:56)
[2019-08-05] MEDS ORDERED: Propofol 200 MG/20 ML SDV ONE (21:56)
[2019-08-05] MEDS ORDERED: fentaNYL 250 MCG/5 ML SDV ONE (21:56)
[2019-08-05] MEDS ORDERED: Midazolam 1 MG/ML 2 ML SDV ONE (21:56)
[2019-08-05] MEDS ORDERED: Ondansetron 4 MG/2 ML SDV ONE (21:56)
[2019-08-05] MEDS ORDERED: Rocuronium 50 MG/5 ML Vial ONE (21:56)
[2019-08-05] MEDS ORDERED: ePHEDrine Sulfate/0.9% NaCl/Pf 25 MG/5 ML SYRINGE IV ONE (22:29)
[2019-08-05] MEDS ORDERED: Succinylcholine/Sod PF 100 MG/5 ML SYRINGE IV ONE (22:29)
[2019-08-05] MEDS: Acetaminophen 325 MG Tab PO SCH (22:59)
[2019-08-05] MEDS ORDERED: Lactated Ringers 1,000 ML ONE (23:02)
[2019-08-05] MEDS: Simvastatin 10 MG Tab PO SCH (23:11)
[2019-08-05] MEDS: Gabapentin 100 MG Cap PO SCH (23:11)
[2019-08-05] MEDS: Doxazosin 2 MG Tab PO SCH (23:11)
[2019-08-06] MEDS ORDERED: Piperacillin/Tazobactam 3.375 GM in Sodium Chloride 0.9% 100 ML IV ONE (00:01)
[2019-08-06] MEDS ORDERED: fentaNYL 100 MCG/2 ML SDV IVPUSH PRN (00:16)
--- NOTE | 2019-08-06 00:17 | PCM.POSTAN ---
POST ANESTHESIA ASSESSMENT - MENTAL STATUS Mental Status: Alert, Oriented - VITAL SIGNS Vital Signs: Last Vital Signs Temp 37.2 C 08/05/19 20:00 Pulse 65 08/05/19 20:32 Resp 18 08/05/19 20:00 BP 111/55 L 08/05/19 20:32 Pulse Ox 97 08/05/19 20:32 - RESPIRATORY Respiratory Status: Respiratory Rate WNL, Airway Patent, O2 Saturation Stable, Supplemental Oxygen - CARDIOVASCULAR CV Status: Pulse Rate WNL, Blood Pressure Stable - GASTROINTESTINAL GI Status: No Symptoms - PAIN Pain Score: 3 - POST OP HYDRATION Hydration Status: Adequate & Stable - OBSERVATIONS Free Text/Narrative:: no anesthesia complications noted
--- NOTE | 2019-08-06 00:22 | PCM.PRNOTE ---
- Free Text/Narrative Note: Date: 08/05/2019 Operation: laparoscopic appendectomy, abdominal washout Indication: RLQ pain with findings on CT scan indicating perforated appendicitis vs perforated sigmoid diverticulitis EBL: 25 cc Pre-op antibiotic: 2 g cefoxitin Telegrapher Agent: JOSH Mosher Findings: severe inflammatory reaction in the right lower quadrant. Appendix was retrocecal and difficult to identify, but it appeared normal without any involvement in the inflammatory tissue. Appendectomy was performed. Some fibrinopurulent exudate and adhesions between cecum and sigmoid colon in right lower quadrant. No significant contamination noted otherwise. A 10 F SHANNAN drain was placed. Detailed Report: The patient was taken to the OR for planned laparoscopic appendectomy. Time out was performed and general endotracheal anesthesia initiated. The left arm was tucked, abdominal hair was clipped and a olmedo catheter was placed. The abdomen was prepped and draped in sterile fashion. A Veress needle was inserted at East's point and the abdomen insufflated to 15 mm Hg with CO2. 0.5% marcaine with epinephrine was injected at all incision sites. At the umbilicus, air was aspirated from the peritoneal cavity to ensure safe placement of a 12 mm bladed trocar. After placement, a 5 mm 30 degree laparoscope was inserted. Additional 5 mm non-bladed trocars were placed at the left lower quadrant and suprapubic region under vision with the laparoscope. The patient was positioned in Trendelenburg and rotated toward the surgeon. Severe inflammatory change was noted in the right lower quadrant, with induration, adhesions, and fibrinopurulent exudate. Blunt dissection was performed in order to try to identify and separate the appendix. The appendix was not clearly identifiable, though there was a mass of visceral fatty tissue near the cecum and the ileocecal junction that was initially presumed to contain the appendix. A few epiploica were dissected and removed from the body using the Ligasure to aid with exposure. After careful dissection, it seemed the presumed appendix was a wad of visceral fat only. The retrocecal space was then explored from the inferior aspect, with the cecum elevated anteriorly. In this plane, a normal looking appendix was identified and traced down to the base of the cecum. The mesoappendix was divided with the Liagsure, and the appendix was stapled off at its base with a 45 mm blue load on a linear cutting stapler. There was no significant hemorrhage during the case. The inflammatory rind was thoroughly irrigated and suctioned. The inflammation thus appeared to be due to perforated sigmoid diverticulitis, without significant abscess or stool visible. A 10 F SHANNAN drain was laid in the area and brought out through the left lower quadrant incision. This was secured in placed with a nylon suture placed at the skin. The 12 mm port was removed and closed at the level of the fascia with 0 vicryl using the laparoscopic suture passer. Pneumoperitoneum was released, and skin incisions were closed with kranthi and dressed with band-aids. Javon Roblero MD General Surgery
[2019-08-06] MEDS: Lidocaine 2% Jelly 5 ML Tube MUCMEM SCH ×7 (01:00→23:34)
[2019-08-06] MEDS: Piperacillin/Tazobactam 4.5 GM in Sodium Chloride 0.9% 100 ML IV SCH ×3 (01:01→17:14)
[2019-08-06] MEDS: Morphine 2 MG/ML Syringe IVPUSH PRN ×3 (01:11→07:43)
[2019-08-06] MEDS: Acetaminophen 325 MG Tab PO SCH ×3 (02:09→19:02)
[2019-08-06] MEDS: Sodium Chloride 0.9% 1,000 ML IV SCH (02:22)
--- NOTE | 2019-08-06 08:11 | PCM.SN.2 ---
- Free Text/Narrative Note: POD 1 s/p laparoscopic appendectomy and abdominal washout, final diagnosis is perforated sigmoid diverticulitis. S: biggest complaint is penile pain at olmedo insertion site. Abdomen distiller. O: AF-VSS, UOP > 50 cc/hr, SHANNAN drain output 48 cc in 6 hours, cloudy serosanguinous fluid No distress abdomen distended, soft, diffusely tender, incision dressings clean and dry, SHANNAN drain in place at left lower quadrant olmedo in place with clear yellow urine output A: Perforated sigmoid diverticulitis- stable after laparoscopic appendectomy and washout with drain placement P: -morphine prn, tylenol scheduled for pain control -IS, OOB, pulmonary toilet -LR @ 100 cc/hr -hold coumadin for 24 hrs -NPO with sips/meds for now -continue IV zosyn 3.375 g q8h -remove olmedo catheter, monitor for urinary retention -SCD for dvt ppx -anticipate at least one more night in the hospital and likely more than that- bowel rest and antibiotic treatment for diverticulitis
[2019-08-06] MEDS: Gabapentin 100 MG Cap PO SCH ×2 (08:26→20:54)
[2019-08-06] MEDS: Amiodarone 200 MG Tab PO SCH (08:26)
[2019-08-06] MEDS: D5 1/2 NS w/ 20 mEq/L KCl 1,000 ML IV SCH (18:47)
[2019-08-06] MEDS: oxyCODONE 5 MG Tab PO PRN (19:00)
[2019-08-06] MEDS: Doxazosin 2 MG Tab PO SCH ×2 (20:53→20:58)
[2019-08-06] MEDS: Simvastatin 10 MG Tab PO SCH (20:54)
[2019-08-07] MEDS: oxyCODONE 5 MG Tab PO PRN ×3 (00:04→18:55)
[2019-08-07] MEDS: D5 1/2 NS w/ 20 mEq/L KCl 1,000 ML IV SCH ×2 (04:17→14:00)
[2019-08-07] MEDS: Acetaminophen 325 MG Tab PO SCH ×3 (04:18→17:05)
[2019-08-07] MEDS: Lidocaine 2% Jelly 5 ML Tube MUCMEM SCH (04:19)
[2019-08-07] MEDS: Morphine 2 MG/ML Syringe IVPUSH PRN (06:27)
[2019-08-07] MEDS: Gabapentin 100 MG Cap PO SCH ×2 (08:21→20:55)
[2019-08-07] MEDS: Piperacillin/Tazobactam 4.5 GM in Sodium Chloride 0.9% 100 ML IV SCH ×4 (08:21→17:05)
[2019-08-07] MEDS: Amiodarone 200 MG Tab PO SCH (08:21)
--- NOTE | 2019-08-07 08:39 | PCM48HPAN ---
Post Anesthesia Note - EVALUATION WITHIN 48HRS OF ANESTHETIC Vital Signs in Normal Range: Yes Patient Participated in Evaluation: Yes Respiratory Function Stable: Yes Airway Patent: Yes Cardiovascular Function Stable: Yes Hydration Status Stable: Yes Pain Control Satisfactory: Yes Nausea and Vomiting Control Satisfactory: Yes Mental Status Recovered: Yes Vital Signs: Last Vital Signs Temp 36.9 C 08/07/19 08:12 Pulse 64 08/07/19 08:12 Resp 18 08/07/19 08:12 BP 105/68 08/07/19 08:12 Pulse Ox 94 L 08/07/19 08:12 - COMMENTS/OBSERVATIONS Free Text/Narrative:: no anesthesia complications noted
--- NOTE | 2019-08-07 12:04 | PCM.SN.2 ---
- Free Text/Narrative Note: POD 2 s/p laparoscopic appendectomy, washout and drain placement- found to have sigmoid diverticulitis rather than appendicitis. S: still with significant abdominal pain. Ambulating, voiding, passed some flatus. No appetite. O: AF-VSS labs reviewed, no significant abnormality Shannan drain output about 60 cc in 24 hrs, serous fluid some purulence around drain at skin. No erythema or ecchymosis. Abdomen distended, soft, tender, mostly at RLQ. A: perforated sigmoid diverticulitis. Stable clinical picture, still with significant abdominal pain P: -scheduled tylenol. oxycodone, morphine prn pain -continue zosyn q8h -IS, OOB, pulmonary toilet -D5 1/2 NS w 20 mEq KCl @ 100 cc/hr- record urine output -hold coumadin; INR 2.9 -maintain SHANNAN drain for now -NPO, sips with meds. May advance to clear liquids if patient is feeling better soon -SCD for DVT ppx
[2019-08-07] MEDS: Doxazosin 2 MG Tab PO SCH (20:54)
[2019-08-07] MEDS: Simvastatin 10 MG Tab PO SCH (20:55)
[2019-08-08] MEDS: D5 1/2 NS w/ 20 mEq/L KCl 1,000 ML IV SCH (00:12)
[2019-08-08] MEDS: Piperacillin/Tazobactam 4.5 GM in Sodium Chloride 0.9% 100 ML IV SCH ×3 (00:13→17:07)
[2019-08-08] MEDS: Acetaminophen 325 MG Tab PO SCH ×3 (04:24→17:10)
[2019-08-08] MEDS: oxyCODONE 5 MG Tab PO PRN ×2 (06:51→20:59)
[2019-08-08] MEDS: Gabapentin 100 MG Cap PO SCH ×2 (08:35→20:13)
[2019-08-08] MEDS: Amiodarone 200 MG Tab PO SCH (08:36)
--- NOTE | 2019-08-08 09:26 | PCM.SN.2 ---
- Free Text/Narrative Note: POD 3 S: reports some mild altered mental status last evening, attributed to oxycodone. Otherwise, no acute events. Pain is controlled. Passing flatus, tolerating clears. O: AF-VSS Awake and alert, no distress Abdomen distended, soft, less tender drain with minimal serous output incision sites with some minor surrounding ecchymosis A: slowly improving from perforated diverticulitis P: -drain removed this morning -this afternoon, if day goes well, plan for regular diet, d/c IV fluids, convert to oral levofloxacin/metronidazole -restart regular coumadin dose tomorrow AM -possible discharge as early as tomorrow afternoon if symptoms continue to improve after changes for 24 hours * This patient will require greater than 96 hours of hospitalization due to ongoing need for IV fluids, antibiotics and post-operative monitoring after being found to have perforated sigmoid diverticulitis.
[2019-08-08] MEDS: metroNIDAZOLE 500 MG Tab PO SCH (18:45)
[2019-08-08] MEDS: Levofloxacin 750 MG Tab PO SCH (18:45)
[2019-08-08] MEDS: Doxazosin 2 MG Tab PO SCH (20:13)
[2019-08-08] MEDS: Simvastatin 10 MG Tab PO SCH (20:13)
[2019-08-09] MEDS: metroNIDAZOLE 500 MG Tab PO SCH ×3 (02:02→17:10)
[2019-08-09] MEDS: Acetaminophen 325 MG Tab PO SCH ×3 (02:03→17:10)
[2019-08-09] MEDS: Amiodarone 200 MG Tab PO SCH (08:30)
[2019-08-09] MEDS: Gabapentin 100 MG Cap PO SCH ×2 (08:30→20:10)
--- NOTE | 2019-08-09 09:19 | PCM.SN.2 ---
- Free Text/Narrative Note: Perforated diverticulitis POD 4- laparoscopic appendectomy, abdominal washout and drain placement S: feels about the same. Still with fair amount of abdominal pain when moving around. Some nausea after dinner. Passing flatus. O: AF-VSS no distress incision sites look okay. Abdomen is protuberant, soft, tender at right lower quadrant. No palpable mass. Calor in the area noted. INR last night was 3.6 A: Stable after starting regular diet and switching to oral antibiotics. P: -add miralax, colace -add mIVF D 5 1/2 w 20 mEq KCl @ 50 cc/hr -recheck full set of labs tomorrow morning -hold coumadin for now given elevation in INR -re-evaluate for potential discharge tomorrow
[2019-08-09] MEDS: Polyethylene Glycol 3350 Powder 17 GM Packet PO SCH (09:46)
[2019-08-09] MEDS: D5 1/2 NS w/ 20 mEq/L KCl 1,000 ML IV SCH (09:48)
[2019-08-09] MEDS: Docusate Sodium 100 MG Cap PO SCH (09:48)
[2019-08-09] MEDS: Warfarin 4 MG Tab PO SCH (10:00)
[2019-08-09] MEDS: oxyCODONE 5 MG Tab PO PRN ×2 (12:26→19:16)
[2019-08-09] MEDS: Levofloxacin 750 MG Tab PO SCH (17:09)
[2019-08-09] MEDS: Simvastatin 10 MG Tab PO SCH (20:10)
[2019-08-09] MEDS: Doxazosin 2 MG Tab PO SCH (20:10)
[2019-08-10] MEDS: metroNIDAZOLE 500 MG Tab PO SCH ×2 (02:42→10:45)
[2019-08-10] MEDS: Acetaminophen 325 MG Tab PO SCH ×3 (02:42→10:44)
[2019-08-10] MEDS: D5 1/2 NS w/ 20 mEq/L KCl 1,000 ML IV SCH ×2 (05:45→08:49)
[2019-08-10] MEDS ORDERED: Magnesium Sulfate/Water 4 GM in Premix Bag 1 BAG IV ONE (08:00)
[2019-08-10] MEDS: Amiodarone 200 MG Tab PO SCH (08:41)
[2019-08-10] MEDS: Docusate Sodium 100 MG Cap PO SCH (08:41)
[2019-08-10] MEDS: Gabapentin 100 MG Cap PO SCH (08:42)
[2019-08-10] MEDS: Polyethylene Glycol 3350 Powder 17 GM Packet PO SCH (08:44)
[2019-08-10] MEDS: Warfarin 4 MG Tab PO SCH (08:54)
--- NOTE | 2019-08-10 16:08 | PCM.DCSUM1 ---
Discharge Summary - Hospital Course Free Text/Narrative:: Mr. Alcaraz was admitted from the ER with abdominal pain on 08/05/2019. A CT scan showed findings concerning for perforated appendicitis vs diverticulitis; the redundant sigmoid colon lay in the right lower quadrant and the appendix was not well visualized. The decision was made to go to the OR as appendicitis was suspected. In the OR, there was severe focal inflammatory change in the right lower quadrant. Careful dissection eventually revealed a normal appearing retrocecal appendix. Appendectomy was performed and a SHANNAN drain was left in the right lower quadrant. No stool or abscess was noted. The patient did well in spite of going to the OR with an INR of 3.2; he takes coumadin for a mechanical aortic valve replacement. He was kept in the hospital for bowel rest and IV antibiotics, and over the next four days slowly normalized. He was able to tolerate a regular diet and have a bowel movement. He was converted from IV zosyn to PO levofloxacin and flagyl. The SHANNAN drain, which never put much out, was removed on POD 3. Coumadin was held throughout, as his INR on the day of discharge was still > 3. Diagnosis: Stroke: No - Discharge Data Discharge Date: 08/10/19 Discharge Disposition: Home, Self-Care 01 Condition: Good - Referral to Home Health Primary Care Physician: PCP Not In Area - Patient Instructions Diet: Heart Healthy Diet Activity: As Tolerated, No Lifting Over 10 Pounds Showering/Bathing: May Shower Notify Provider of: Fever, Increased Pain, Swelling and Redness, Drainage, Nausea and/or Vomiting - Discharge Plan *PRESCRIPTION DRUG MONITORING PROGRAM REVIEWED*: Not Applicable *COPY OF PRESCRIPTION DRUG MONITORING REPORT IN PATIENT NANCY: Not Applicable Prescriptions/Med Rec: Levofloxacin 750 mg PO DAILY #10 tablet metroNIDAZOLE [Metronidazole] 500 mg PO Q8H #30 tablet oxyCODONE 5 mg PO Q4H PRN #15 tab PRN Reason: Pain Home Medications: Home Meds Amiodarone [Cordarone] 200 mg PO DAILY 08/05/19 [History] Diclofenac Sodium 50 mg PO DAILY 08/05/19 [History] Doxazosin [Cardura] 1 mg PO BEDTIME 08/05/19 [History] Gabapentin [Neurontin] 100 mg PO BID 08/05/19 [History] Magnesium Amino Acid Chelate [Magnesium] 100 mg PO DAILY 08/05/19 [History] Pravastatin [Pravachol] 20 mg PO BEDTIME 08/05/19 [History] Warfarin Sodium [Coumadin] 6 mg PO TUFR 08/05/19 [History] Warfarin [Coumadin] 3 mg PO SUMOWETHSA 08/05/19 [History] Levofloxacin 750 mg PO DAILY #10 tablet 08/10/19 [Rx] metroNIDAZOLE [Metronidazole] 500 mg PO Q8H #30 tablet 08/10/19 [Rx] oxyCODONE 5 mg PO Q4H PRN #15 tab 08/10/19 [Rx] Oxygen Therapy Mode: Room Air Patient Handouts: Diverticulitis, Steps to Quit Smoking Referrals: Javon Roblero MD [Physician] - 08/17/19 2:00 pm (Please check in by 1: 30pm for paperwork.) - Discharge Summary/Plan Comment DC Time >30 min.: Yes Discharge Summary/Plan Comment: Follow up in clinic in one week. - Patient Data Vitals - Most Recent: Last Vital Signs Temp 36.8 C 08/10/19 12:07 Pulse 58 L 08/10/19 12:07 Resp 16 08/10/19 12:07 BP 118/41 L 08/10/19 12:07 Pulse Ox 97 08/10/19 12:07 Weight - Most Recent: 112.4 kg I&O - Last 24 hours: Intake & Output 08/10/19 08/10/19 08/10/19 06:59 14:59 22:59 Intake Total 700 210 Output Total 1400 Balance -700 210 Lab Results - Last 24 hrs: Laboratory Results - last 24 hr 08/10/19 08/10/19 08/10/19 Range/Units 05:11 05:11 05:11 WBC 6.72 (4.23-9.07) K/mm3 RBC 3.41 L (4.63-6.08) M/mm3 Hgb 10.8 L (13.7-17.5) gm/dl Hct 33.1 L (40.1-51.0) % MCV 97.1 H D (79.0-92.2) fl MCH 31.7 (25.7-32.2) pg MCHC 32.6 (32.2-35.5) g/dl RDW Std Deviation 45.7 H (35.1-43.9) fL Plt Count 216 (163-337) K/mm3 MPV 9.6 (9.4-12.3) fl Neut % (Auto) 78.9 H (34.0-67.9) % Lymph % (Auto) 9.2 L (21.8-53.1) % Barry % (Auto) 8.5 (5.3-12.2) % Eos % (Auto) 2.7 (0.8-7.0) Baso % (Auto) 0.3 (0.1-1.2) % Neut # (Auto) 5.30 (1.78-5.38) K/mm3 Lymph # (Auto) 0.62 L (1.32-3.57) K/mm3 Barry # (Auto) 0.57 (0.30-0.82) K/mm3 Eos # (Auto) 0.18 (0.04-0.54) K/mm3 Baso # (Auto) 0.02 (0.01-0.08) K/mm3 Manual Slide Review PT 32.9 H (9.7-12.0) SECONDS INR 3.23 Sodium (136-145) mEq/L Potassium (3.5-5.1) mEq/L Chloride (98-107) mEq/L Carbon Dioxide (21-32) mEq/L Anion Gap (5-15) BUN (7-18) mg/dL Creatinine (0.7-1.3) mg/dL Est Cr Clr Drug Dosing mL/min Estimated GFR (MDRD) (>60) mL/min BUN/Creatinine Ratio (14-18) Glucose (83-115) mg/dL Calcium (8.5-10.1) mg/dL Phosphorus 3.0 (2.6-4.7) mg/dL Magnesium 1.7 L (1.8-2.4) mg/dl 08/10/19 Range/Units 05:11 WBC (4.23-9.07) K/mm3 RBC (4.63-6.08) M/mm3 Hgb (13.7-17.5) gm/dl Hct (40.1-51.0) % MCV (79.0-92.2) fl MCH (25.7-32.2) pg MCHC (32.2-35.5) g/dl RDW Std Deviation (35.1-43.9) fL Plt Count (163-337) K/mm3 MPV (9.4-12.3) fl Neut % (Auto) (34.0-67.9) % Lymph % (Auto) (21.8-53.1) % Barry % (Auto) (5.3-12.2) % Eos % (Auto) (0.8-7.0) Baso % (Auto) (0.1-1.2) % Neut # (Auto) (1.78-5.38) K/mm3 Lymph # (Auto) (1.32-3.57) K/mm3 Barry # (Auto) (0.30-0.82) K/mm3 Eos # (Auto) (0.04-0.54) K/mm3 Baso # (Auto) (0.01-0.08) K/mm3 Manual Slide Review PT (9.7-12.0) SECONDS INR Sodium 138 (136-145) mEq/L Potassium 3.5 (3.5-5.1) mEq/L Chloride 102 (98-107) mEq/L Carbon Dioxide 26 (21-32) mEq/L Anion Gap 13.5 (5-15) BUN 11 (7-18) mg/dL Creatinine 1.0 (0.7-1.3) mg/dL Est Cr Clr Drug Dosing 63.65 mL/min Estimated GFR (MDRD) > 60 (>60) mL/min BUN/Creatinine Ratio 11.0 L (14-18) Glucose 110 (83-115) mg/dL Calcium 9.0 (8.5-10.1) mg/dL Phosphorus (2.6-4.7) mg/dL Magnesium (1.8-2.4) mg/dl Med Orders - Current: Current Medications Acetaminophen (Tylenol) 975 mg PO Q8H [facility] Last Admin: 08/10/19 10:44 Dose: Not Given Amiodarone HCl (Cordarone) 200 mg PO DAILY [facility] Last Admin: 08/10/19 08:41 Dose: 200 mg Docusate Sodium (Colace) 100 mg PO DAILY [facility] Last Admin: 08/10/19 08:41 Dose: 100 mg Doxazosin Mesylate (Cardura) 1 mg PO BEDTIME [facility] Last Admin: 06/14/20 20:10 Dose: 1 mg Gabapentin (Neurontin) 100 mg PO BID [facility] Last Admin: 08/10/19 08:42 Dose: 100 mg Potassium Chloride/Dextrose/Sod Cl (D5 1/2 Ns W/ 20 Meq/L Kcl) 1,000 mls @ 50 mls/hr IV ASDIRECTED [facility] Last Admin: 08/10/19 08:49 Dose: 50 mls/hr Levofloxacin (Levaquin) 750 mg PO Q24H [facility] Last Admin: 08/09/19 17:09 Dose: 750 mg Metronidazole (Flagyl) 500 mg PO Q8H [facility] Last Admin: 08/10/19 10:45 Dose: 500 mg Morphine Sulfate (Morphine) 1 mg IVPUSH Q3H PRN PRN Reason: Pain (severe 7-10) Last Admin: 08/07/19 06:27 Dose: 1 mg Oxycodone HCl (Oxycodone) 5 mg PO Q4H PRN PRN Reason: Pain (moderate 4-6) Last Admin: 08/09/19 19:16 Dose: 5 mg Polyethylene Glycol (Miralax) 17 gm PO DAILY [facility] Last Admin: 08/10/19 08:44 Dose: 17 gm Simvastatin (Zocor) 10 mg PO BEDTIME [facility] Last Admin: 08/09/19 20:10 Dose: 10 mg Sodium Chloride (Saline Flush) 10 ml FLUSH ASDIRECTED PRN PRN Reason: Keep Vein Open Last Admin: 08/05/19 15:16 Dose: 10 ml Warfarin Sodium (Coumadin) 4 mg PO DAILY [facility] Last Admin: 08/10/19 08:54 Dose: Not Given Discontinued Medications Bupivacaine HCl/Epinephrine Bitart (Marcaine 0.5%/Epinephrine 1:200,000) Confirm Administered Dose 50 ml .ROUTE .STK-MED ONE Stop: 08/05/19 21:02 Last Admin: 08/05/19 22:38 Dose: 17 ml Diatrizoate Meglum/Diatrizoate Sod (Gastrografin 37%) 120 ml PO ONETIME ONE Stop: 08/05/19 15:40 Last Admin: 08/05/19 16:53 Dose: 120 ml Ephedrine Sulfate (Ephedrine 25 Mg/5 Ml Syringe) Confirm Administered Dose 25 mg IV .STK-MED ONE Stop: 08/05/19 22:30 Fentanyl (Sublimaze) Confirm Administered Dose 250 mcg .ROUTE .STK-MED ONE Stop: 08/05/19 21:57 Fentanyl (Sublimaze) 50 mcg IVPUSH Q5M PRN PRN Reason: Pain Glycopyrrolate () Confirm Administered Dose 1 mg .ROUTE .STK-MED ONE Stop: 08/05/19 23:55 Sodium Chloride (Normal Saline) 1,000 mls @ 100 mls/hr IV ASDIRECTED [facility] Last Admin: 08/06/19 02:22 Dose: 150 mls/hr Piperacillin Sod/Tazobactam (Sod 4.5 gm/ Sodium Chloride) 100 mls @ 200 mls/hr IV ONETIME ONE Stop: 08/05/19 17:47 Last Admin: 08/05/19 17:16 Dose: 200 mls/hr Lactated Ringer's (Ringers, Lactated) 1,000 mls @ 100 mls/hr IV ASDIRECTED [facility] Last Admin: 08/06/19 05:23 Dose: 100 mls/hr Piperacillin Sod/Tazobactam (Sod 3.375 gm/ Sodium Chloride) 100 mls @ 200 mls/ hr IV Q8HR ONE Stop: 08/06/19 00:30 Piperacillin Sod/Tazobactam (Sod 4.5 gm/ Sodium Chloride) 100 mls @ 25 mls/hr IV Q8H [facility] Last Admin: 08/08/19 17:07 Dose: 25 mls/hr Lidocaine HCl (Xylocaine-Mpf 1%) Confirm Administered Dose 4 mls @ as directed .ROUTE .STK-MED ONE Stop: 08/05/19 21:57 Cefoxitin Sodium (Mefoxin In Dextrose,Iso-Osm 2 Gm/50 Ml) Confirm Administered Dose 50 mls @ as directed .ROUTE .STK-MED ONE Stop: 08/05/19 22:35 Lactated Ringer's (Ringers, Lactated) Confirm Administered Dose 1,000 mls @ as directed .ROUTE .STK-MED ONE Stop: 08/05/19 23:03 Potassium Chloride/Dextrose/Sod Cl (D5 1/2 Ns W/ 20 Meq/L Kcl) 1,000 mls @ 100 mls/hr IV ASDIRECTED [facility] Last Admin: 08/08/19 00:12 Dose: 100 mls/hr Magnesium Sulfate 4 gm/ Premix 50 mls @ 12.5 mls/hr IV ONETIME ONE Stop: 08/10/19 11:59 Last Admin: 08/10/19 08:41 Dose: 12.5 mls/hr Iopamidol (Isovue-300 (61%)) 50 ml IVPUSH ONETIME ONE Stop: 08/05/19 15:40 Last Admin: 08/05/19 16:53 Dose: 50 ml Iopamidol (Isovue-300 (61%)) 100 ml IVPUSH ONETIME ONE Stop: 08/05/19 15:40 Last Admin: 08/05/19 16:53 Dose: 100 ml Lidocaine HCl (Xylocaine 2% Jelly) 5 ml MUCMEM Q4H [facility] Last Admin: 08/07/19 04:19 Dose: Not Given Midazolam HCl (Versed 1 Mg/Ml) Confirm Administered Dose 2 mg .ROUTE .STK-MED ONE Stop: 08/05/19 21:57 Neostigmine Methylsulfate (Neostigmine Methylsulfate) Confirm Administered Dose 5 mg .ROUTE .STK-MED ONE Stop: 08/05/19 23:55 Ondansetron HCl (Zofran) 4 mg IVPUSH ONETIME ONE Stop: 08/05/19 15:17 Last Admin: 08/05/19 15:18 Dose: 4 mg Ondansetron HCl (Zofran) Confirm Administered Dose 4 mg .ROUTE .STK-MED ONE Stop: 08/05/19 21:57 Propofol (Diprivan 20 Ml) Confirm Administered Dose 200 mg .ROUTE .STK-MED ONE Stop: 08/05/19 21:57 Rocuronium [place] (Zemuron) Confirm Administered Dose 50 mg .ROUTE .STK-MED ONE Stop: 08/05/19 21:57 Sodium Chloride (Saline Flush) 10 ml FLUSH ONETIME PRN PRN Reason: IV FLUSH Last Admin: 08/05/19 16:54 Dose: 10 ml
[2019-08-10] MEDS: oxyCODONE 5 MG Tab PO PRN (16:43)
== END 2019-08-10 16:47 | disposition home or self-care (01) | DRG 343 ==
LOC: JD.ED 14:46 → JD.MS 18:09
PROVIDERS: ADMIT Surgery; ATTEND Surgery
PROC: 0DTJ4ZZ Resection of Appendix, Percutaneous Endoscopic Approach (ICD-10-PCS; principal; 2019-08-05)
DX: K57.80 Diverticulitis of intestine, part unspecified, with perforation and abscess without bleeding (principal); K57.20 Diverticulitis of large intestine with perforation and abscess without bleeding; H54.7 Unspecified visual loss; E78.00 Pure hypercholesterolemia, unspecified; F17.200 Nicotine dependence, unspecified, uncomplicated; F17.210 Nicotine dependence, cigarettes, uncomplicated; Z86.73 Personal history of transient ischemic attack (TIA), and cerebral infarction without residual deficits; Z90.89 Acquired absence of other organs; Z79.899 Other long term (current) drug therapy; Z79.01 Long term (current) use of anticoagulants; Z95.2 Presence of prosthetic heart valve
CPT/HCPCS: 36415; 71045; 74177; 80053; 81001; 83605; 83690; 85025; 85610; 85730; 86140; 86850; 86900; 86901; 93005; 96365; 96375; 99285; J2405; J2543; J7030; J7050; Q9963; Q9967 ×2; 00840; 51798; 80048; 83735; 84100; 88304; A9270-GY; J0171; J0330; J0694; J2001; J2250; J2270; J2704; J2710; J3010; J3475; J3480; J3490; J7120; U0002